=== PATIENT | female | born 1955 | race Caucasian/White ===

== ENCOUNTER 2024-01-06 09:22 | Emergency (ER) | payer MEDICARE, BC, SELFPAY ==
[2024-01-06 09:36] VITALS: BP 127/73; PULSE 69; RESP 16; TEMP 36.4; O2SAT 100
--- NOTE | 2024-01-06 09:52 | ED.FEMALEGU ---
HPI - Female Genitourinary General Chief complaint: Urogenital-Female Stated complaint: uti symptoms Time Seen by Provider: 01/06/24 09:48 Source: patient and RN notes reviewed Mode of arrival: ambulatory Limitations: no limitations History of Present Illness HPI Narrative: 68-year-old female presents concern for frequency, urgency, suprapubic pressure and discomfort, nausea. Reports symptoms started about 2 days ago. She reports low back discomfort. She denies fever, abdominal pain, vomiting. Reports she had a yeast infection that was treated a couple weeks ago. MD elicited complaint: UTI Related Data Home Medications Medication Instructions Recorded Confirmed aspirin 81 mg chewable tablet 81 mg PO DAILY 01/06/24 01/06/24 atorvastatin 10 mg tablet 10 mg PO DAILY 01/06/24 01/06/24 bisoprolol 10 1 tablet PO DAILY 01/06/24 01/06/24 mg-hydrochlorothiazide 6.25 mg tablet duloxetine 30 mg capsule,delayed 30 mg PO DAILY 01/06/24 01/06/24 release mometasone 50 mcg/actuation nasal 2 spray intranasal BID 01/06/24 01/06/24 spray omeprazole 40 mg capsule,delayed 40 mg PO DAILY 01/06/24 01/06/24 release Allergies Allergy/AdvReac Type Severity Reaction Status Date / Time No Known Allergies Allergy Verified 01/06/24 09:41 Review of Systems Review of Systems: CONSTITUTIONAL: Denies malaise, chills, sweats, or fever. CARDIOVASCULAR: Denies chest pain, palpitations, or edema. RESPIRATORY: Denies cough or dyspnea. GASTROINTESTINAL: Denies abdominal pain, vomiting, diarrhea. Reports nausea GENITOURINARY: Reports dysuria, frequency, suprapubic pressure. Denies flank pain or hematuria. SKIN: Denies rash or itching. MUSCULOSKELETAL: Reports lower back pain. Denies myalgia. All systems reviewed & are unremarkable except as noted in HPI and below PMFSH Past Medical History Medical History (Updated 01/06/24 @ 09:53 by Mame Lopez NP) HTN (hypertension) Surgical History Surgical History (Updated 06/20/19 @ 02:04 by Flori Casillas) No history of previous surgery Social History Social History (Updated 06/20/19 @ 02:04 by Flori Casillas) Smoking status: Unknown if ever smoked Gender identity (if verbalized by the patient): Female Comments At time of signature, agree with nursing past medical, surgical, social and family history. There is no relevant family history pertinent to the presenting complaint Exam Narrative: GENERAL: Well-appearing, well-nourished, and in no acute distress. HEAD: Normocephalic. EYES: PERRLA, conjunctivae clear. NECK: Supple. No lymphadenopathy CHEST: Clear to auscultation. No respiratory distress. HEART: Regular rate and rhythm. ABDOMEN: Soft, nontender upon palpation, nondistended, normal active bowel sounds, no palpable or pulsatile masses, no guarding. No CVA tenderness SKIN: Warm, dry, no rash. NEURO: Alert and oriented x3. PSYCH: Normal mood and affect Course Course Emergency Course: Patient is aware of diagnosis, understands and agrees to treatment plan. Anticipatory guidance given. Patient agrees to follow-up as directed and is aware of reasons to seek care at the emergency department. Portions of this record may have been created with voice recognition software Level of Care: Express Care Visit Vital Signs Vital signs: Vital Signs Temperature 97.6 F 01/06/24 09:36 Pulse Rate 69 01/06/24 09:36 Respiratory Rate 16 01/06/24 09:36 Blood Pressure 127/73 01/06/24 09:36 Pulse Oximetry 100 01/06/24 09:36 Oxygen Delivery Room Air 01/06/24 09:36 Temperature 97.6 F 01/06/24 09:36 Pulse Rate 69 01/06/24 09:36 Respiratory Rate 16 01/06/24 09:36 Blood Pressure 127/73 01/06/24 09:36 Pulse Oximetry 100 01/06/24 09:36 Oxygen Delivery Room Air 01/06/24 09:36 Reviewed. MDM - Female Genitourinary MDM Narrative Medical decision making narrative: Exam findings and UA show no acute concerns or ch
== END 2024-01-06 09:55 | disposition home or self-care (01) ==
PROVIDERS: Emergency Provider Nurse Practitioner; PCP Family Medicine
DX: N39.0 Urinary tract infection, site not specified (principal); B96.20 Unspecified Escherichia coli [E. coli] as the cause of diseases classified elsewhere; I10 Essential (primary) hypertension; Z79.82 Long term (current) use of aspirin
CPT/HCPCS: 81003; 87077; 87086; 87088; 87186; 99213; G0463

== ENCOUNTER 2024-06-10 12:36 | Outpatient (CLI) | payer MEDICARE, BC, SELFPAY ==
--- NOTE | ~2024-06-10 | CT_ITS ---
CLINICAL INDICATION: Left lower quadrant pain. COMPARISON: None. TECHNIQUE: An unenhanced CT of the abdomen and pelvis was performed utilizing multislice spiral techn ique reconstructed at 5 mm slice thickness. Coronal and sagittal reconstructions were performed. DLP: 607 mGy-cm FINDINGS/OBSERVATIONS: Visualized lower thorax:The bilateral lung bases are clear. The heart is of normal size, without pericardial effusion. Liver: 4 mm focus of decreased attenuation within segment 2 of the liver, too small to characterize o n the current evaluation. The remainder of the liver demonstrates homogeneous attenuation. Gallbladder and biliary system: The gallbladder is distended, without calcified stones. Pancreas: Limited evaluation without intravenous contrast. No ductal dilatation is appreciated Spleen: The spleen is not enlarged and demonstrates homogeneous attenuation. Kidneys: No hydronephrosis or renal calculi. Adrenal glands: Unremarkable Gastrointestinal tract: Mural thickening with surrounding inflammatory change is identified within th e sigmoid colon, with multiple diverticulum, findings consistent with acute diverticulitis. A punctate focus of free intraperitoneal air is present (axial series, image 97) consistent with a co ntained perforation. No drainable fluid collection is present. No gross free perforation is noted. A staple line is detected within the rectum, suggesting previous intervention, similar to as one [facility] t see following a low anterior resection procedure. However, the colon appears to be of appropriate length, for which clinical correlation is needed. Appendix:The air-filled appendix is of normal caliber (axial series, image 80). Vasculature: Unremarkable. Lymph nodes: Scattered nonpathologically enlarged or morphologically suspicious lymph nodes within th e retroperitoneum and the root of the mesentery, a nonspecific finding. Pelvic structures:The uterus is anteverted and anteflexed. The bladder is decompressed, limiting its evaluation. Body wall and musculoskeletal: Fat-containing umbilical hernia. No significant degenerative disease within the lower thoracic and lumbosacral spines IMPRESSION: Acute diverticulitis of the sigmoid colon with a contained perforation. No drainable fluid collection is present. No gross free perforation is noted. Reviewed, dictated and finalized at location A.
== END 2024-06-10 12:37 | disposition home or self-care (01) ==
PROVIDERS: Visit Provider Family Medicine
DX: K57.92 Diverticulitis of intestine, part unspecified, without perforation or abscess without bleeding (principal)
CPT/HCPCS: 74176